=== PATIENT | female | born 1950 | race Caucasian/White ===

== ENCOUNTER 2019-12-11 06:10 | Day surgery (SDC) | payer OTHER ==
[~2019-12-11 06:10] MED LIST: ATORVASTATIN CA20 MG PO; DERMACINRX5000 UNIT PO; ENALAPRIL MALEA10 MG PO; LEVOTHYROXINE25 MCG PO; PEPCID AC20 MG PO; PRILOSEC OTC20 MG PO; PROLIA60 MG/1 ML
== END 2019-12-11 15:35 | disposition home or self-care (01) ==
LOC: CIR.AMB 06:10
PROVIDERS: ATTEND Colon & Rectal Surgery
DX: K64.8 Other hemorrhoids (principal); K64.4 Residual hemorrhoidal skin tags; Z20.828 Contact with and (suspected) exposure to other viral communicable diseases